=== PATIENT | female | born 1995 | race Caucasian/White ===

== ENCOUNTER → 2022-03-19 | Outpatient (CLI) | payer BC, MEDICAID ==
--- NOTE | 2022-03-19 18:08 | Diagnostic Imaging Report ---
INDICATION: , anatomic survey. TECHNIQUE: Multiple real-time grayscale images were obtained over the gravid uterus. COMPARISON: None. FINDINGS: There is a single live intrauterine gestation in cephalic presentation. The cervix is measured at 5.5 cm, but not well seen due to shadowing from the head. The placenta is posterior, and is measured at 2.5 cm away from the internal os, near the lower limit of normal. The heart rate measures 144 BPM. The amniotic fluid is subjectively normal, and a vertical pocket is measured at 4.6 cm. The stomach is seen. The cord insertion is seen. The bladder is seen. Two umbilical arteries are seen demonstrating a three-vessel cord. Lateral ventricles are seen. The cerebellum and cisterna magna are seen. The upper and lower spine are seen. The kidneys are seen. The diaphragm is seen. The right and left ventricular outflow tracts are shown. The nose and lips are seen. A four-chamber heart is seen. Biometrical measurements are as follows: Biparietal 4.25 cm, age 19 weeks 0 days. Head circumference 16.31 cm, age 19 weeks 1 days. Abdominal circumference 13.15 cm, age 18 weeks 5 days. Femur length 3.07 cm, age 19 weeks 4 days. Sonographic estimate age: 19 weeks 1 days. Sonographic estimated date of delivery: 08/12/2022. Estimated Weight: 272 gm (+/- 40 gm). LMP percentile: 58%. heart rate: 144 beats per minute. number: 1 of 1. IMPRESSION: 1. Single live intrauterine gestation measuring at 19 weeks and 1 day, which is within range of the clinical dates. 2. Anatomic survey with no abnormality seen. Dictated on workstation # [id number]
== END ==
LOC: RAD 12:00
PROVIDERS: ATTEND Nurse Practitioner Women's Health
DX: Z34.02 Encounter for supervision of normal first pregnancy, second trimester (principal); Z3A.19 19 weeks gestation of pregnancy
CPT/HCPCS: 76805

== ENCOUNTER → 2022-07-03 | Outpatient (CLI) | payer MEDICAID | LOC: LABNPT 15:55 | DX: R80.9 Proteinuria, unspecified (principal) | CPT/HCPCS: 82570; 84156 ==

== ENCOUNTER 2022-07-04 11:53 | Outpatient (CLI) | payer MEDICAID ==
[2022-07-04] VITALS (10 sets, daily range): BP systolic 80–120; BP diastolic 45–70
[~2022-07-04] VITALS: Ht 157.5 cm; Wt 91.7 kg
[2022-07-04] MEDS ORDERED: D5 LR IV SOLUTION 1,000 ML IV SCH (13:00)
[2022-07-04 13:16] LABS: BILIRUBIN,URINE NEGATIVE (NEGATIVE); CLARITY,URINE CLEAR; COLOR,URINE YELLOW; GLUCOSE, URINE (UA) NEGATIVE (NEGATIVE); KETONES,URINE NEGATIVE (NEGATIVE); LEUKOCYTE ESTERASE ,URINE NEGATIVE (NEGATIVE); NITRITE,URINE NEGATIVE (NEGATIVE); PROTEIN,URINE NEGATIVE (NEGATIVE)
[2022-07-04 13:22] LABS: BACTERIA,URINE TRACE /HPF; SQUAMOUS EPITHELIAL CELL,UR 0-2 /HPF; WBC,URINE RARE /HPF
--- NOTE | 2022-07-07 08:34 | Physician Query-Final Dx ---
SHONNA,07/07/22 0834: Clinic Account Progress/Dx Physician Query: Please give diagnosis Please include # weeks gestation Date of Service Jul 04, 2022 at 11:53 KASANDRA DENSON MD 07/08/22 0824: Clinic Account Progress/Dx DIAGNOSIS: Diagnosis 34 weeks gestation with vasovagal syncope SHONNA,AugJul 07, 2022 08:34 KASANDRA DENSON MD Jul 08, 2022 08:24
== END 2022-07-04 14:52 | disposition home or self-care (01) ==
LOC: WSo 11:53 → LDRP 11:53 → WSo 14:52
PROVIDERS: ATTEND Obstetrics & Gynecology
DX: O26.893 Other specified pregnancy related conditions, third trimester (principal); R42 Dizziness and giddiness; Z3A.34 34 weeks gestation of pregnancy
CPT/HCPCS: 81000; 99213

== ENCOUNTER 2022-07-31 09:25 | Inpatient (IN) | payer MEDICAID ==
[2022-07-31] VITALS (8 sets, daily range): BP systolic 98–120; BP diastolic 58–81
[~2022-07-31] VITALS: Ht 157.5 cm; Wt 92.9 kg
[2022-07-31 10:08] LABS: BILIRUBIN,URINE NEGATIVE (NEGATIVE); CLARITY,URINE SL CLOUDY; COLOR,URINE DARK YELLOW; GLUCOSE, URINE (UA) NEGATIVE (NEGATIVE); KETONES,URINE NEGATIVE (NEGATIVE); LEUKOCYTE ESTERASE ,URINE TRACE (NEGATIVE); NITRITE,URINE NEGATIVE (NEGATIVE); PH,URINE 5.5 (5-9); PROTEIN,URINE NEGATIVE (NEGATIVE)
[2022-07-31 10:17] LABS: AMORPHOUS SEDIMENT,UR FEW AMOR URATES /LPF; BACTERIA,URINE MODERATE /HPF
[2022-07-31] MEDS ORDERED: LACTATED RINGERS 1,000 ML IV SCH (12:45)
[2022-07-31] MEDS ORDERED: ceFAZolin INJECTION 2,000 MG in NS (IVPB) 50 ML IV ONE (12:45)
[2022-07-31] MEDS ORDERED: METOCLOPRAMIDE INJ 10 MG/2 ML (REGLAN) IV ONE (12:45)
[2022-07-31] MEDS ORDERED: FAMOTIDINE 20MG/2ML IV (PEPCID) IV ONE (12:45)
[2022-07-31] MEDS ORDERED: CATHETER FLUSH 10 ML SYR IV PRN (12:45)
[2022-07-31] MEDS ORDERED: CITRIC ACID/SOB CIT (BICITRA) 30 ML UDC PO ONE (12:45)
[2022-07-31] MEDS ORDERED: LACTATED RINGERS 1,000 ML IV PRN (12:45)
[2022-07-31 13:25] LABS: BASOPHILS % (AUTO) 0 % (0-10); EOSINOPHILS % (AUTO) 0 % (0-10); HEMATOCRIT 33 % (35-52); LYMPHOCYTES # (AUTO) 1.8 10^3/uL (1.0-4.0); LYMPHOCYTES % (AUTO) 14 % (12-44); MEAN CORPUSCULAR HEMOGLOBIN 29 pg (25-34); MEAN CORPUSCULAR HGB CONC 34 g/dL (32-36); MEAN CORPUSCULAR VOLUME 85 fL (80-99); MEAN PLATELET VOLUME 10.4 fL (9.0-12.2); MONOCYTES # (AUTO) 0.6 10^3/uL (0.0-1.0); MONOCYTES % (AUTO) 5 % (0-12); NEUTROPHILS # (AUTO) 10.3 10^3/uL (1.8-7.8); NEUTROPHILS % (AUTO) 80 % (42-75); PLATELET COUNT 250 10^3/uL (130-400); WHITE BLOOD COUNT 12.7 10^3/uL (4.3-11.0)
[2022-07-31] MEDS ORDERED: KETOROLAC 30 MG/ML VIAL ONE (13:37)
[2022-07-31] MEDS ORDERED: ONDANSETRON 4 MG/2 ML (SDV) Z0FRAN ONE (13:37)
[2022-07-31] MEDS ORDERED: fentaNYL INJ 100 MCG/2 ML AMP ONE (13:37)
[2022-07-31] MEDS ORDERED: OXYTOCIN PRE-MIX DRIP 1,000 ML IV ONE (13:48)
--- NOTE | 2022-07-31 13:50 | History & Physical-OB ---
OB - Chief Complaint & HPI Date/Time Date of Admission: Date of Admission: Jul 31, 2022 at 12:31 Date seen by a Provider: Jul 31, 2022 Time Seen by a Provider: 13:47 Chief Complaint/History OB-Reason for Admission/Chief: Section Hx : 2 Hx Para: 1 Expected Date of Delivery: Aug 14, 2022 Gestational Age in Weeks: 38 Gestational Age in Days: 1 Indication for : desires repeat Admission Nurse Assessment Rev: Yes Allergies and Home Medications Allergies Coded Allergies: morphine (Verified Allergy, Unknown, 07/04/22) Patient Home Medication List Home Medication List Reviewed: Yes No Active Prescriptions or Reported Meds OB - History Hx of Present Care: Yes Obstetrical Complications: None Medical Complications: None Obstetrical History Hx : 2 Hx Para: 1 Patient Past Medical History n/a Social History/Family History Alcohol Use: Denies Use Recreational Drug Use: No 2nd Hand Smoke Exposure: No Immunizations Influenza Vaccine Up-to-Date: No; Not Current OB - Admission Exam Physical Exam Vitals: Vital Signs 07/31/22 11:36 Temp 36.4 Pulse 86 Resp 20 B/P (MAP) 120/81 Pulse Ox 98 O2 Delivery Room Air HEENT: NCAT Heart: Rhythm Normal Lungs: Clear Abdomen: Gravid Extremities: Normal Reflexes: Normal Heart Rate: 130's Accelerations: Accelerations Present Decelerations: Variable Decelerations Short 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: Average (6-25) Contractions on Admission: >10 Minutes Apart Intensity: Mild Labs Laboratory Tests Test 07/31/22 09:45 07/31/22 13:21 Range/Units Urine Color DARK YELLOW Urine Clarity SL CLOUDY Urine pH 5.5 5-9 Urine Specific [place] >=1.030 1.016-1.022 Urine Protein NEGATIVE NEGATIVE Urine Glucose (UA) NEGATIVE NEGATIVE Urine Ketones NEGATIVE NEGATIVE Urine Nitrite NEGATIVE NEGATIVE Urine Bilirubin NEGATIVE NEGATIVE Urine Urobilinogen 1.0 < = 1.0 MG/DL Urine Leukocyte Esterase TRACE H NEGATIVE Urine RBC (Auto) NEGATIVE NEGATIVE Urine RBC NONE /HPF Urine WBC 2-5 /HPF Urine Squamous Epithelial Cells 2-5 /HPF Urine Crystals PRESENT H /LPF Urine Amorphous Sediment FEW [place]OM[place]ON URATES H /LPF Urine Bacteria MODERATE H /HPF Urine Casts NONE /LPF Urine Mucus SMALL H /LPF Urine Culture Indicated YES White Blood Count 12.7 H 4.3-11.0 10^3/uL Red Blood Count 3.84 3.80-5.11 10^6/uL Hemoglobin 11.0 L 11.5-16.0 g/dL Hematocrit 33 L 35-52 % Mean Corpuscular Volume 85 80-99 fL Mean Corpuscular Hemoglobin 29 25-34 pg Mean Corpuscular Hemoglobin Concent 34 32-36 g/dL Red Cell Distribution Width 13.3 10.0-14.5 % Platelet Count 250 130-400 10^3/uL Mean Platelet Volume 10.4 9.0-12.2 fL Immature Granulocyte % (Auto) 1 % Neutrophils (%) (Auto) 80 H 42-75 % Lymphocytes (%) (Auto) 14 12-44 % Monocytes (%) (Auto) 5 0-12 % Eosinophils (%) (Auto) 0 0-10 % Basophils (%) (Auto) 0 0-10 % Neutrophils # (Auto) 10.3 H 1.8-7.8 10^3/uL Lymphocytes # (Auto) 1.8 1.0-4.0 10^3/uL Monocytes # (Auto) 0.6 0.0-1.0 10^3/uL Eosinophils # (Auto) 0.0 0.0-0.3 10^3/uL Basophils # (Auto) 0.0 0.0-0.1 10^3/uL Immature Granulocyte # (Auto) 0.1 0.0-0.1 10^3/uL OB - Assessment/Plan/Diagnosis Assessment Assessment: section Admission Dx 26 yo @ 38 weeks heart rate variable deceleration Previous Admission Status: Inpatient Order (span 2 midnights) Reason for Inpatient Admission: RCS Plan Plan: Section DANNIELLEKATHYYVAN DO Jul 31, 2022 13:50
[2022-07-31] MEDS ORDERED: CATHETER FLUSH 10 ML SYR IV SCH ×2 (14:00→22:00)
[2022-07-31] MEDS ORDERED: TETANUS,DIPTH,PERTUSS P/F (BOOSTRIX) 0.5 ML VIAL IM SCH (14:15)
[2022-07-31] MEDS ORDERED: ONDANSETRON 4 MG/2 ML (SDV) Z0FRAN IVP PRN (14:15)
[2022-07-31] MEDS ORDERED: MEASLES,MUMPS,RUBELLA 1 EA INJ SC SCH (14:15)
[2022-07-31] MEDS ORDERED: NALOXONE 0.4 MG/ML 1 ML (NARCAN) VIAL IV PRN (14:15)
[2022-07-31] MEDS: KETOROLAC 30 MG/ML VIAL IV SCH ×2 (14:45→20:49)
[2022-07-31] MEDS ORDERED: BUPIVACAINE 0.25% 30 ML (SENSORCAINE) VIAL ONE (14:45)
[2022-07-31] MEDS ORDERED: ATROPINE INJ 0.4 MG/ML SDV ONE (14:48)
[2022-07-31] MEDS: OXYTOCIN PRE-MIX DRIP 500 ML IV SCH ×2 (14:48→19:20)
--- NOTE | 2022-07-31 16:55 | Discharge Inst-Women's Service ---
Discharge Inst-Women's Serv Depart Medication/Instructions New, Converted or Re-Newed RX: Transmitted to Pharmacy Final Diagnosis POD 2 RLTCS Problems Reviewed?: Yes Consults/Follow Up Additional Follow Up: Yes Orders/Referrals Dr. Fatima in 7-10 days and in 6 weeks Activity Activity: Activity as Tolerated Driving Instructions: No Driving for 1 Week NO SMOKING: NO SMOKING Nothing Inside Vagina: No Douching, No [place], No Tampons Diet Discharge Diet: No Restrictions Symptoms to Report to : Bleeding Excessive, Pain Increased, Fever Over 101 Degrees F, Vaginal Bleeding Increase, Questions/Concerns For Any Problems or Questions: Contact Your Physician Skin/Wound Care Infection Signs and Symptoms: Increased Redness, Foul Odor of Wound, Increased Drainage, Skin Itchy or Has a Rash, Increased Swelling, Temperature Above 101 F Operative Area Clean and Dry: Keep Incision Clean/Dry Stitches/[place]/Dermabond: Dermabond, Care of Stitches Bathing Instructions: YVAN Hartmann DO Jul 31, 2022 4:55 pm
[2022-07-31] MEDS ORDERED: IBUP-844 PO (16:57)
[2022-07-31] MEDS ORDERED: DOCU100C37 PO (16:57)
[2022-07-31] MEDS ORDERED: ACHD5005 PO (16:57)
[2022-07-31] MEDS: HYDROcodone/APAP 5 MG/325 MG (LORTAB) TAB PO PRN ×2 (18:17→19:27)
[2022-07-31] MEDS ORDERED: diphenhydrAMINE 50 MG/ML INJ (BENADRYL) IV PRN (18:45)
--- NOTE | 2022-07-31 20:45 | OPERATIVE REPORT ---
PREOPERATIVE DIAGNOSES: 1. A 26-year-old female at 38 weeks' gestation. 2. Previous section. 3. heart rate variable decelerations. POSTOPERATIVE DIAGNOSES: 1. A 26-year-old female at 38 weeks' gestation. 2. Previous section. 3. heart rate variable decelerations. PROCEDURE: Repeat low transverse section. SURGEON: Kirill Archer DO ANESTHESIA: Spinal. ESTIMATED BLOOD LOSS: 600 mL URINE OUTPUT: 50 mL clear at the end of the procedure. FLUIDS: 2200 with lactated Ringer solution. FINDINGS: A live female , weight pending, Apgars of 9 and 9. Grossly normal appearing uterus, bilateral fallopian tubes and ovaries. SPECIMENS SENT: None. INDICATIONS FOR PROCEDURE: This 26-year-old female with the patient, who had come to the floor with irregular contractions and pelvic pain and discomfort. She thought she may be in labor. She was a repeat ; however, upon further evaluation, there was some heart rate variable decelerations. I discussed with the patient proceeding with delivery today at 38 weeks. Risks of the procedure were discussed with the patient in detail and after all of her questions were answered. Consent was obtained. The patient was taken to the operating room. REPORT IN DETAIL: Once in the operating room, spinal analgesia was found to be adequate. She was placed in the supine position with a leftward tilt, prepped and draped in normal sterile fashion. A timeout was performed. Anesthesia was tested. I then make a Pfannenstiel skin incision through the previous existing scar using a knife and carried down to the fascia using Bovie cautery. The fascial incision extended laterally using Bovie cautery. Superior aspect of the fascial incision was then grasped with George clamps, tented up and dissected off the rectus muscles. The inferior aspect of the fascial incision was then grasped with George clamps and sharply dissected off the rectus muscles. The rectus muscle was then dissected down the midline, which exposed the peritoneum, which were entered bluntly and extended using blunt traction. Jose ring retractor was placed and the peritoneal incision, was offered excellent lateral sidewall retraction, identified the lower uterine segment, was found to be thinned out and make a low transverse incision in the vesicouterine peritoneum and bluntly dissected off the lower uterine segment, creating a bladder flap. I then proceeded by myotomy until membranes were visualized, at which point I extended the uterine incision laterally and superiorly using bandage scissors. Amniotomy was then performed with an Allis clamp. Clear fluid was noted. The infant was found in vertex presentation. With gentle fundal pressure, the infant's head was elevated up to the incision where the nares and oropharynx were bulb suctioned. Anterior and posterior shoulders were delivered. The infant was then brought to the operative field where the cord was doubly clamped and cut and infant was handed off to waiting nurses in attendance. Cord blood was collected. Three-vessel cord intact placenta was delivered spontaneously thereafter. IV Pitocin is initiated to facilitate uterine contraction. Uterine sponge counts were removed. Bimanual massage. Uterus was then exteriorized and cleared of all endometrial clots and debris. I then proceeded with closing the uterine incision using 0 Vicryl suture in a running locked fashion. A second layer of imbricating Monocryl was placed. Excellent hemostasis was noted after doing this. I then placed the uterus back in the pelvis and copiously irrigated the pelvis with normal saline. Once again, there was noted to be negative dissection planes and placed Interceed antiadhesive over a low transverse incision. I removed the Jose ring retractor and then proceeded with closing the peritoneum using 3-0 Vicryl suture in a running fashion. The rectus muscle was reapproximated using 3-0 Vicryl suture in interrupted fashion. The fascia was reapproximated using 0 Vicryl suture in a running fashion. The subcutaneous tissue was reapproximated using 3-0 plain interrupted subcutaneous stitch and the skin was reapproximated using 4-0 Monocryl in a running subcuticular. Dermabond was applied to incision and sterile dressing with adhesive white tape. The patient tolerated the procedure well and was taken to the recovery area in stable condition. Lap and sponge counts were correct at the end of the procedure. Instrument counts were correct as well. Two grams of Ancef were given preoperatively for infection prophylaxis. Job ID: [id number] DocumentID: [id number] Dictated Date: 07/31/2022 17:04:47 Enrollment Coordinator Date: 07/31/2022 20:43:00 Dictated By: KIRILL ARCHER DO
[2022-07-31] MEDS: DOCUSATE SODIUM 100 MG (COLACE) CAP PO SCH (20:48)
[2022-08-01] MEDS: HYDROcodone/APAP 5 MG/325 MG (LORTAB) TAB PO PRN ×4 (01:53→21:20)
[2022-08-01 01:54] VITALS: BP 106/52
[2022-08-01] MEDS: KETOROLAC 30 MG/ML VIAL IV SCH (02:27)
[2022-08-01 06:00] LABS: BASOPHILS % (AUTO) 0 % (0-10); EOSINOPHILS % (AUTO) 0 % (0-10); HEMATOCRIT 28 % (35-52); HEMOGLOBIN 9.6 g/dL (11.5-16.0); LYMPHOCYTES # (AUTO) 2.2 10^3/uL (1.0-4.0); LYMPHOCYTES % (AUTO) 21 % (12-44); MEAN CORPUSCULAR HEMOGLOBIN 29 pg (25-34); MEAN CORPUSCULAR HGB CONC 34 g/dL (32-36); MEAN CORPUSCULAR VOLUME 85 fL (80-99); MEAN PLATELET VOLUME 10.4 fL (9.0-12.2); MONOCYTES # (AUTO) 0.8 10^3/uL (0.0-1.0); MONOCYTES % (AUTO) 8 % (0-12); NEUTROPHILS # (AUTO) 7.6 10^3/uL (1.8-7.8); NEUTROPHILS % (AUTO) 71 % (42-75); PLATELET COUNT 178 10^3/uL (130-400); WHITE BLOOD COUNT 10.7 10^3/uL (4.3-11.0)
[2022-08-01 06:27] VITALS: BP 112/69
[2022-08-01 08:25] VITALS: BP 108/70
[2022-08-01] MEDS: DOCUSATE SODIUM 100 MG (COLACE) CAP PO SCH ×2 (08:26→20:25)
[2022-08-01] MEDS: IBUPROFEN 600 MG (MOTRIN) TAB PO SCH ×3 (08:27→20:25)
--- NOTE | 2022-08-01 11:09 | Postpartum Progress Note ---
Note Note Day # 1 Subjective: Patient is without complaints. Ambulating, voiding. Tolerating a regular diet without nausea or vomiting. Normal lochia. Pain is well controlled with oral pain medications. Physical Exam: General - Alert and oriented, no apparent distress Abdomen - Soft, appropriately tender to palpation, non-distended, fundus firm at umbilicus; incision c/d/i Extremities - no edema, negative Kristel's bilaterally Assessment: Post- day # 1, status post RLTCS Recovering well, hemodynamically stable Acute blood loss anemia Plan: Routine care. Encourage breast feeding. Encourage ambulation. Ferrous sulfate supplementation. Plan for discharge tomorrow Vitals - Labs Vital Signs - I&O Vital Signs Date Time Temp Pulse Resp B/P (MAP) Pulse Ox O2 Delivery O2 Flow Rate FiO2 08/01/22 08:25 35.8 67 20 108/70 (83) 98 Room Air 08/01/22 06:27 35.9 64 18 112/69 (83) 99 Room Air 08/01/22 01:54 36.8 73 18 106/52 (70) 98 Room Air 07/31/22 20:51 36.2 62 18 107/58 (74) 97 Room Air 07/31/22 19:14 98 0.00 21 07/31/22 18:19 37.1 65 18 119/66 (83) Room Air 07/31/22 15:48 Room Air 07/31/22 15:48 35.8 16 109/59 (76) 99 Room Air 07/31/22 15:35 35.8 16 113/68 (83) 97 Room Air 07/31/22 15:20 35.8 18 110/66 (81) Room Air 07/31/22 15:05 35.8 18 98/61 (73) 97 Room Air 07/31/22 14:50 35.8 18 120/66 (84) 97 Room Air 07/31/22 11:36 36.4 86 20 120/81 98 Room Air I & O 08/01/22 07:00 Intake Total 1050 ml Output Total 100 ml Balance 950 ml Labs Laboratory Tests 07/31/22 13:21: White Blood Count 12.7H, Red Blood Count 3.84, Hemoglobin 11.0L, Hematocrit 33L, Mean Corpuscular Volume 85, Mean Corpuscular Hemoglobin 29, Mean Corpuscular Hemoglobin Concent 34, Red Cell Distribution Width 13.3, Platelet Count 250, Mean Platelet Volume 10.4, Immature Granulocyte % (Auto) 1, Neutrophils (%) (Auto) 80H, Lymphocytes (%) (Auto) 14, Monocytes (%) (Auto) 5, Eosinophils (%) (Auto) 0, Basophils (%) (Auto) 0, Neutrophils # (Auto) 10.3H, Lymphocytes # (Auto) 1.8, Monocytes # (Auto) 0.6, Eosinophils # (Auto) 0.0, Basophils # (Auto) 0.0, Immature Granulocyte # (Auto) 0.1, Syphilis Serology Non-Reactive 08/01/22 05:35: White Blood Count 10.7, Red Blood Count 3.31L, Hemoglobin 9.6L, Hematocrit 28L, Mean Corpuscular Volume 85, Mean Corpuscular Hemoglobin 29, Mean Corpuscular Hemoglobin Concent 34, Red Cell Distribution Width 13.3, Platelet Count 178, Mean Platelet Volume 10.4, Immature Granulocyte % (Auto) 1, Neutrophils (%) (Auto) 71, Lymphocytes (%) (Auto) 21, Monocytes (%) (Auto) 8, Eosinophils (%) (Auto) 0, Basophils (%) (Auto) 0, Neutrophils # (Auto) 7.6, Lymphocytes # (Auto) 2.2, Monocytes # (Auto) 0.8, Eosinophils # (Auto) 0.0, Basophils # (Auto) 0.0, Immature Granulocyte # (Auto) 0.1 JANEY ROGERS APRN Aug 01, 2022 11:08
[2022-08-01 12:30] VITALS: BP 132/79
[2022-08-01 14:00] VITALS: BP 113/61
[2022-08-01] MEDS ORDERED: IBUPROFEN 600 MG (MOTRIN) TAB PO SCH (14:15)
[2022-08-01] MEDS: SIMETHICONE 80 MG (MYLICON) CHEW PO SCH ×2 (17:10→21:33)
[2022-08-01 21:18] VITALS: BP 126/79
[2022-08-02] MEDS: IBUPROFEN 600 MG (MOTRIN) TAB PO SCH ×2 (01:48→08:05)
[2022-08-02 03:06] VITALS: BP 114/75
[2022-08-02] MEDS: HYDROcodone/APAP 5 MG/325 MG (LORTAB) TAB PO PRN ×2 (03:08→09:28)
[2022-08-02 08:00] VITALS: BP 116/75
[2022-08-02] MEDS: DOCUSATE SODIUM 100 MG (COLACE) CAP PO SCH (08:05)
[2022-08-02] MEDS: SIMETHICONE 80 MG (MYLICON) CHEW PO SCH (08:05)
--- NOTE | 2022-08-02 08:16 | Postpartum Progress Note ---
Note Note Day # [2] Subjective: Patient is without complaints. Ambulating, voiding. Tolerating a regular diet without nausea or vomiting. Normal lochia. Pain is well controlled with oral pain medications. [] feeding. [] Objective: [VSS/AF (see graphic] Physical Exam: General - Alert and oriented, no apparent distress Abdomen - Soft, appropriately tender to palpation, non-distended, fundus firm 4 cm below umbilicus, incision clean and dry and without erythema, intact. Extremities - no edema, negative Kristel's bilaterally Assessment: [] post-op day # [2], status post [C-Sectioon] Recovering well, hemodynamically stable Plan: Routine care. Encourage ambulation. Plan for discharge: Discharge meds and follow up taken care of by Dr. Fatima, patient has post-op/ instructions. No questions by patient or FOB. RN in room during patient encounter. ] Vitals - Labs Vital Signs - I&O Vital Signs Date Time Temp Pulse Resp B/P (MAP) Pulse Ox O2 Delivery O2 Flow Rate FiO2 08/02/22 03:06 36.1 69 20 114/75 (88) 98 Room Air 08/01/22 21:54 36.8 08/01/22 21:18 74 20 126/79 (95) 100 Room Air 08/01/22 14:00 36.7 74 18 113/61 (78) Room Air 08/01/22 12:30 36.7 70 18 132/79 (96) 98 Room Air 08/01/22 08:25 35.8 67 20 108/70 (83) 98 Room Air Labs Microbiology 07/31/22 Urine Culture - Final, Complete Gram Pos Mixed Bacterial [place] See Comments VIN FOSTER DO Aug 02, 2022 08:16
[2022-08-02 11:15] VITALS: BP 116/75
== END 2022-08-02 12:30 | disposition home or self-care (01) | DRG 787 ==
LOC: LDRP 09:25 → WSo 09:25 → LDRP 12:31
PROVIDERS: ADMIT Obstetrics & Gynecology; ATTEND Obstetrics & Gynecology
PROC: 10D00Z1 Extraction of Products of Conception, Low, Open Approach (ICD-10-PCS; principal; 2022-07-31 13:55)
DX: O34.211 Maternal care for low transverse scar from previous cesarean delivery (principal); D62 Acute posthemorrhagic anemia; Z3A.38 38 weeks gestation of pregnancy; Z37.0 Single live birth; O76 Abnormality in fetal heart rate and rhythm complicating labor and delivery; O90.81 Anemia of the puerperium
CPT/HCPCS: 36415; 81000; 85025; 86780; 86850; 86900; 86901; 87088; 94664; 99212